=== PATIENT | male | born 1960 | race Caucasian/White ===

== ENCOUNTER → 2024-08-06 16:00 | Outpatient (BNVA) | payer MEDICARE, SELFPAY | PROVIDERS: PCP Family Medicine; Visit Provider Podiatrist Foot & Ankle Surgery | DX: Q82.8 Other specified congenital malformations of skin (principal) | CPT/HCPCS: 17110; 99203 ==

== ENCOUNTER → 2024-09-03 15:15 | Outpatient (BNVA) | payer MEDICARE, SELFPAY | PROVIDERS: PCP Family Medicine; Visit Provider Podiatrist Foot & Ankle Surgery | DX: Q82.8 Other specified congenital malformations of skin (principal) | CPT/HCPCS: 99213 ==

== ENCOUNTER → 2025-05-07 07:10 | Outpatient (BNVA) | payer MEDICARE, SELFPAY | PROVIDERS: PCP Nurse Practitioner Family; Visit Provider Podiatrist Foot & Ankle Surgery | DX: Q82.8 Other specified congenital malformations of skin (principal) | CPT/HCPCS: 17110; 99213 ==

== ENCOUNTER → 2025-07-20 16:02 | Outpatient (BNVA) | payer MEDICARE, SELFPAY | PROVIDERS: PCP Nurse Practitioner Family; Visit Provider Nurse Practitioner Family | DX: E55.9 Vitamin D deficiency, unspecified (principal); I10 Essential (primary) hypertension; Z79.899 Other long term (current) drug therapy; Z12.5 Encounter for screening for malignant neoplasm of prostate | CPT/HCPCS: 80053; 80061; 81003; 82306; 83036; 84443; 85025; G0103 ==

== ENCOUNTER → 2025-07-22 07:51 | Outpatient (BNVA) | payer MEDICARE, SELFPAY | PROVIDERS: PCP Nurse Practitioner Family; Visit Provider Podiatrist Foot & Ankle Surgery | DX: Q82.8 Other specified congenital malformations of skin (principal) | CPT/HCPCS: 17110; 99213 ==